=== PATIENT | male | born 1980 | race Hispanic/Latino ===

== ENCOUNTER 2023-01-22 09:50 | Emergency (ER) | payer OTHER ==
[~2023-01-22] VITALS: Ht 172.7 cm; Wt 81.6 kg
[2023-01-22] MEDS ORDERED: FLUORESCEIN SOD(OPTH) 1 MG STRP ONE (11:03)
[2023-01-22] MEDS ORDERED: TETRACAINE HCL 0.5% OPTH SOLN 4 ML BTL ONE (11:03)
[2023-01-22] MEDS ORDERED: VIGAMOX3 ML OS (12:28)
[2023-01-22 12:33] VITALS: BP 126/99
== END 2023-01-22 12:30 | disposition home or self-care (01) ==
LOC: ER 12:18
DX: H57.12 Ocular pain, left eye (principal)
CPT/HCPCS: 70480; 99284